=== PATIENT | female | born 1970 | race Asian ===

== ENCOUNTER 2020-09-07 11:53 | Emergency (ER) | payer OTHER ==
--- NOTE | 2020-09-07 13:14 | ED Physician Documentation ---
History of Present Illness - Stated complaint Stated Complaint: HEARING LOSS - Chief complaint Chief Complaint: Heent - Additonal information Additional information: 50-year-old female presents the emergency department for evaluation of progr essively worsening hearing loss. Reports that about 1 week ago she began noted decreased hearing and muffled sounds in her left ear. She did try and earwax removal without relief. This morning she noticed that her right ear was itchy and she used a Q-tip to scratch it and then had loss of hearing in the right ear. She denies any pain. She does use Q-tips daily. No recent travel. No tinnitus no headaches no fevers. She does have seasonal allergies and is currently taking Flonase associated with that. Review of Systems Constitutional: denies: Fever Eyes: denies: Loss of vision Ears: reports: Loss of hearing, Ear pain. denies: Drainage/discharge, Tinnitus/ringing, Foreign body Nose: reports: Rhinorrhea / runny nose, Congestion Throat: denies: Dental pain / toothache, Oral lesions / sores, Sore throat Cardiac: denies: Chest pain / pressure, Palpitations Respiratory: denies: Dyspnea, Cough GI: denies: Abdominal Pain, Abdominal Swelling, Nausea, Vomiting : denies: Dysuria, Frequency Skin: reports: Reviewed and negative Musculoskeletal: reports: Reviewed and negative PD PAST MEDICAL HISTORY - Present Medications Home Medications: Ambulatory Orders Medication Instructions Recorded Confirmed Ofloxacin [Ocuflox] 5 drops EACHEAR BID #1 bottle 09/07/20 - Allergies Allergies/Adverse Reactions: Allergies Allergy/AdvReac Type Severity Reaction Status Date / Time No Known Drug Allergies Allergy Verified 09/07/20 12:02 PD ED PE EXPANDED - General General: Alert, No acute distress - HEENT HEENT: No: Ears normal (Bilateral EACs 100% occluded with firm hard wax.) Results - Vitals Vitals: Vital Signs - 24 hr 09/07/20 12:03 Temperature 36.3 C L Heart Rate 73 Respiratory 18 Rate Blood Pressure 147/79 H O2 Saturation 100 Oxygen O2 Source Room air Procedures - General procedure General procedure: Using a soft curette at the bedside I was able to remove the wax bezoar from the left EAC. Visible TM is licona. The EAC is mildly erythematous without drainage. Approximately 60 to 70% of the hard wax was removed from the right EAC with some associated erythema of the canal but no TM erythema or bulge. PD MEDICAL DECISION MAKING - ED course Complexity details: re-evaluated patient, d/w patient ED course: 50-year-old female presented to the emergency department for evaluation of progressive hearing loss. On exam she had 100% hard wax occlusion in both of her ear canals. The wax was successfully removed in the left EAC with some mild associated erythema of the ear canal. The TM remains intact. About 60 to 70% of the wax was removed from the right ear canal. With some associated ear canal erythema. Both TMs are intact. We will place the patient on ofloxacin eardro ps. Advised to discontinue the use of Q-tips. Emergent return precautions discussed Departure - Departure Disposition: 01 Home, Self Care Clinical Impression: Impacted cerumen of both ears Condition: Stable Record reviewed to determine appropriate education?: Yes Instructions: Earwax Impacted Prescriptions: Ofloxacin [Ocuflox] 5 drops EACHEAR BID #1 bottle Comments: You were seen in the emergency department today for hearing loss in both ears. As we discussed both your ear canals were occluded with hard wax. We have successfully removed all of the wax from the left ear canal and about 30% remains in your right ear canal. There is some associated inflammation in the ear canal after the wax was removed. Please fill the prescription for the antibiotic drops. Please place 5 drops in each canal twice daily for 1 week. I also recommend that you discontinue using Q-tips. You are simply pushing the wax further into the ear canal each time you do this. Discussed this ED visit with your primary care doctor. Return to the emergency department for fevers, sudden hearing loss or ear pain.
[2020-09-07 13:30] VITALS: BP 138/69
== END 2020-09-07 13:28 | disposition home or self-care (01) ==
LOC: ED 11:53
DX: H61.23 Impacted cerumen, bilateral (principal)
CPT/HCPCS: 99282; 99283